=== PATIENT | female | born 1960 | race Asian ===

== ENCOUNTER 2019-02-21 22:14 | Inpatient (IN) | payer BC ==
[~2019-02-21] VITALS: Ht 162.6 cm; Wt 64.6 kg
[2019-02-21 22:30] VITALS: Ht 162.6 cm; Wt 64.6 kg
--- NOTE | 2019-02-21 22:30 | NUR ---
PATIENT SEEN IN BED WITH COMPLAINT OF BLOODY DIARRHEA STOOL , REPORTS HISORY OF DIVERTICULITIS. PATIENT IS [facility] FOR MD EVALUATION. PATIENT ALSO COMPLAINT OF A COUGH SINCE .
[2019-02-21 22:54] LABS: BASOPHIL % 0.1 % (0-2); PLATELET COUNT 289 x10^3mcL (130-400); RED CELL DISTRIBUTION WIDTH 13.6 % (11.5-14.5)
--- NOTE | 2019-02-21 23:00 | NUR ---
PATIENT WAS SEEN BY .
[2019-02-21 23:16] LABS: ALBUMIN 3.5 g/dL (3.4-5.0); BILIRUBIN TOTAL 0.2 mg/dL (0.20-1.00); CALCIUM 8.5 mg/dL (8.5-10.1); CARBON DIOXIDE 31.2 mmol/L (21-32); CREATININE SERUM 1.2 mg/dL (0.6-1.0); TOTAL PROTEIN, SERUM 6.7 g/dL (6.4-8.2)
[2019-02-21 23:21] LABS: POTASSIUM SERUM 2.8 mmol/L (3.5-5.1)
--- NOTE | 2019-02-21 23:30 | NUR ---
PATIENT MEDICATED WITH COUGH MEDICATION, PATIENT DOES HAVE BOUTS OF CONGESTED COUGHING. SALINE LOCK INSERTED. FLUID BOLUS WAS STARTED. TORADOL GIVEN IVO FOR ABDOMINAL PAIN.
--- NOTE | 2019-02-22 | NUR ---
NASAL SWAB WAS DONE FOR INFLUENZA. PATIENT AMBULATED TO THE BATHROOM URINE COLLECED AND SENT TO THE LAB. PATIENT IS ON THE MONITOR , VITAL SIGNS STABLE.
[2019-02-22 01:40] LABS: UA SPECIFIC GRAVITY 1.015 (1.005-1.035); microscopic required? YES; urine erythrocyte TRACE (NEGATIVE)
[2019-02-22] MEDS ORDERED: COZAAR50 M1 PO (01:51)
[2019-02-22] MEDS ORDERED: SYN15 PO (01:51)
--- NOTE | 2019-02-22 02:12 | NUR ---
PT MEDICATED PER MD ORDER. PT VERBALIZED UNDERSTANDING OF ALL MEDICATIONS PRIOR TO ADMINISTRATION.
--- NOTE | 2019-02-22 02:49 | NUR ---
REPORT CALLED TO TREVOR LAMBERT TO ASSUME CARE FOR PT.
--- NOTE | 2019-02-22 02:50 | NUR ---
RECEIVED REPORT FROM ANALIA MURRAY FROM ED. AWAITING FOR PT TO ARRIVE TO UNIT.
[2019-02-22 02:51] LABS: CHOLESTEROL/HDL RATIO 4.5
--- NOTE | 2019-02-22 02:52 | NUR ---
PT IS LAYING IN BED COMFORTABLY, RESP E/U, NAD NOTED.
[2019-02-22 03:18] LABS: FREE T4 1.07 ng/dL (0.76-1.46); T4(THYROXINE) 7.6 ug/dL (4.7-13.3)
[2019-02-22 03:24] LABS: T3 TOTAL 0.74 ng/mL
--- NOTE | 2019-02-22 03:28 | NUR ---
PT MEDICATED PER MD ORDER. PT VERBALIZED UNDERSTANDING OF MEDICATION PRIOR TO ADMINISTRATION.
--- NOTE | 2019-02-22 03:35 | NUR ---
PT ARRIVED TO UNIT VIA WHEELCHAIR ACCOMPANIED BY ED RN. PT IS AAOX4 AND DENIES HEADACHE OR DIZZINESS AT THIS TIME. PT IS MED-SURG AND DENIES CHEST PAIN OR PRESSURE AT THIS TIME. PT PULSES ARE PALPABLE AND CAP REFILL <3 SEC. SCD's AT THE BEDSIDE. PT LUNG SOUNDS ARE CONGESTED. PT BREATHING IS EVEN AND UNLABORED. PT DENIES SOB OR RESPIRATORY DISTRESS AT THIS TIME. PT HAS A NONPRODUCTIVE COUGH. PT ABD SOFT AND NONDISTENDED. PT HAS HYPERACTIVE BOWEL SOUNDS X4. PT C/O FREQUENT BLOODY DIARRHEA. PT C/O ABD PAIN 2/10, BUT IS TOLERABLE. PT REFUSED PAIN MEDICATION AT THIS TIME. PT DENIES N/V AT THIS TIME. PT VOIDS FREELY WITH BRP. PT IS AMBULATORY AND IS OK TO SHOWER. PT SKIN IS WARM, DRY, AND INTACT. PT IV TO LAC IS PATENT AND INTACT. PT REORIENTED TO ROOM AND CALL LIGHT. ALL QUESTIONS AND CONCERNS ADDRESSED. CALL LIGHT WITHIN REACH. BED IN LOWEST POSITION. SIDE RAILS X2 UP. WILL CONTINUE TO MONITOR.
[2019-02-22 04:04] VITALS: BP 105/69
--- NOTE | 2019-02-22 04:50 | NUR ---
PT HAD BM 1X OF BLOODY DIARRHEA WITH SOME BLOOD CLOTS. COLLECTED SAMPLE FOR OB STOOL AND STOOL C&S. WILL CONTINUE TO MONITOR.
[2019-02-22 06:22] LABS: BASOPHIL % 0.2 % (0-2); PLATELET COUNT 210 x10^3mcL (130-400); RED CELL DISTRIBUTION WIDTH 13.5 % (11.5-14.5)
--- NOTE | 2019-02-22 06:32 | NUR ---
PT SLEPT IN INTERVALS AFTER BEING ADMITTED TO THE UNIT AT 0335. PT COMPLIED WITH NURSING CARE THROUGHOUT THE SHIFT. NO ACUTE DISTRESS NOTED DURING THE SHIFT. COMFORT AND SAFETY MEASURES MAINTAINED. ALL NEEDS AND CONCERNS ADDRESSED. WILL ENDORSE TO DAY SHIFT NURSE. WILL CONTINUE TO MONITOR.
[2019-02-22 06:47] LABS: CALCIUM 8.3 mg/dL (8.5-10.1); CARBON DIOXIDE 26.4 mmol/L (21-32); CHLORIDE SERUM 108 mmol/L (98-107); GFR1 > 60 mL/min; GLUCOSE SERUM 134 mg/dL (74-106); MAGNESIUM 1.8 mg/dL (1.8-2.4); PHOSPHOROUS 2.8 mg/dL (2.5-4.9); POTASSIUM SERUM 3.7 mmol/L (3.5-5.1); SODIUM SERUM 140 mmol/L (136-145)
--- NOTE | 2019-02-22 07:13 | NUR ---
ENDORSED CARE TO DAYSI MURRAY. ALL QUESTIONS AND CONCERNS ADDRESSED.
--- NOTE | 2019-02-22 07:30 | NUR ---
OX4. NO SOB AT RM AIR BUT WITH ON/OFF. PRODUCTIVE WITH "LITTLE" WHITISH SPUTUM. DENIES PAIN THAT REQUIRE PAIN MED. ADMITS TO BLOODY STOOLS. DENIES PROBLEM WITH VOIDING. UP DESIRED WITH STABLE GAIT. NSS AT 100 ML/HR INFUSING. LAC SITE PATENT. NSG ASSESSMENT DONE. WILL CONTINUE TO MONITOR STATUS.
[2019-02-22 09:19] VITALS: BP 99/62
[2019-02-22 10:28] VITALS: BP 99/69
--- NOTE | 2019-02-22 10:45 | NUR ---
PT UPDATED WITH NEW ORDERS.
--- NOTE | 2019-02-22 11:00 | NUR ---
PT HAD BM WITH SOLID BLOOD TINGED STOOLS;
--- NOTE | 2019-02-22 12:12 | NUR ---
DR. SORIANO IN THE ROOM TALKING TO PT. VISITORSX2 IN THE ROOM TOO.
[2019-02-22 12:33] VITALS: BP 105/67
--- NOTE | 2019-02-22 13:00 | NUR ---
IVF RATE INCREASED TO 125 ML/HR ORDERED.
[2019-02-22 13:30] LABS: BASOPHIL % 0.2 % (0-2); PLATELET COUNT 197 x10^3mcL (130-400); RED CELL DISTRIBUTION WIDTH 13.3 % (11.5-14.5)
[2019-02-22 17:00] VITALS: BP 103/61
--- NOTE | 2019-02-22 19:00 | NUR ---
PT REPORTED 3 EPISODES OF BM THIS SHIFT. THE LAST ONE BEING "LESSER, WATER IS CLEAR, AND WITH BLOOD CLOTS". STILL WITH ON/OFF COUGH; NO SOB;
--- NOTE | 2019-02-22 19:15 | NUR ---
RECIEVED PT RESTING IN BED WITH FAMILY MEMBER AT BEDSIDE, ASSESSMENT PERFORMED, PT IS A/OX4 NO COMPLAINTS OF RIVERO OR DIZZINESS AT THIS TIME, PT DENIES PAIN OR SOB AT THIS TIME, PT DOES HAVE PRODUCTIVE COUGH WITH SCANT SECRETIONS, ALL PT NEEDS ATTENDED TO AT THIS TIME, SAFETY PRECAUTIONS IN PLACE, WILL CONTINUE TO MONITOR
[2019-02-22 20:50] VITALS: BP 131/71
--- NOTE | 2019-02-22 23:55 | NUR ---
PT RESTING IN BED WATCHING TV WITH NO ACUTE DISTRESS NOTED AT THIS TIME, PT DENIES PAIN OR SOB AT THIS TIME, ALL PT NEEDS ATTENDED TO, SAFETY PRECAUTIONS IN PLACE, WILL CONTINUE TO MONITOR
--- NOTE | 2019-02-23 00:24 | NUR ---
PT COMPLAINING OF COUGH, ADMINISTERED ROBITUSSIN PER PRN ORDER.
[2019-02-23 04:47] VITALS: BP 111/68
--- NOTE | 2019-02-23 04:50 | NUR ---
PT REPORTS COUGHING, ADMINISTERED PO ROBITUSSIN PER PRN ORDER WILL MONITOR
--- NOTE | 2019-02-23 05:06 | NUR ---
PT RESTED COMFORTABLY THROUGH THE NIGHT WITH NO ACUTE DISTRESS. PT HAS 3 EPISODES OF COUGH AND RECIEVED POBITUSSIN PRN 5ML PER ORDER, PT DENIES PAIN OR SOB THROUGH THE NIGHT WITH NO EPISODES OF BLOODY BM, ALL PT NEEDS ATTENDED TO THROUGH THE NIGHT, SAFETY PRECAUTIONS IN PLACE, WILL CONTINUE TO MONITOR AND ENDORSE CARE
[2019-02-23 06:10] LABS: BASOPHIL % 0.5 % (0-2); PLATELET COUNT 205 x10^3mcL (130-400); RED CELL DISTRIBUTION WIDTH 13.6 % (11.5-14.5)
[2019-02-23 06:25] LABS: CALCIUM 8.5 mg/dL (8.5-10.1); CARBON DIOXIDE 26.5 mmol/L (21-32); CHLORIDE SERUM 109 mmol/L (98-107); CREATININE SERUM 0.7 mg/dL (0.6-1.0); GFR1 > 60 mL/min; GLUCOSE SERUM 88 mg/dL (74-106); POTASSIUM SERUM 3.5 mmol/L (3.5-5.1); SODIUM SERUM 141 mmol/L (136-145)
--- NOTE | 2019-02-23 07:00 | NUR ---
RECEIVED REPORT FROM DYE WORKER PATIENT LYING IN BED DENIES ANY PAIN AT THIS TIME. IV ON LAC PATENT AND INTACT NO REDNESS OR EDEMA NOTED. PATIENT DENIES ANY BLEEDIND ABD SOFT AND FLAT ACTIVE SOUNDS IN ALL 4 QUADS. ALL QUESTIONS AND CONCERNS ADDRESSED AT THIS TIME. BED IN LOWEST POSITION CALL LIGHT WITHIN REACH. WILL CONTINUE TO MONITOR.
[2019-02-23 08:51] VITALS: BP 103/69
--- NOTE | 2019-02-23 09:14 | NUR ---
ADMINISTERED SCHEDULAED MED PER MAR PATIENT TOLERATED WELL. PATIENT DENIES ANY PAIN AT THIS TIME. PATIENT STILL COUGHING ADMINISTERED ROBITUSSIN NO ADVERSE REACTIONS NOTED. IV INFUSING ANTIBIOTICS NO EDEMA OR REDNESS NOTED. ALL NEEDS ATTENDED TO. BED IN LOWEST POSITION CALL LIGHT WITHIN REACH. WILL OCNTINUE TO MONITOR.
[2019-02-23] MEDS ORDERED: LEVOFLOXACIN500 M1 PO (09:26)
[2019-02-23] MEDS ORDERED: GOOD SENSE OMEP20 MG PO (09:26)
[2019-02-23] MEDS ORDERED: FLAGYL500 MG PO (09:26)
[2019-02-23] MEDS ORDERED: ROBL PO (09:28)
[2019-02-23] MEDS ORDERED: SLOFE PO (09:54)
[2019-02-23 10:50] VITALS: BP 103/69
--- NOTE | 2019-02-23 11:19 | NUR ---
DISCHARGE INSTRUCTINS GIVEN PATIENT VERBALIZED UNDERSTANDING. IV D/C'D DRESSING APPLIED CATHETER INTACT PATIENT TOLERATED WELL. ALL [id number] BELONGINGS PACKED UP AND TAKEN WITH PATIENT. ALL QUESTIONS AND CONCERNS ADDRESSED. PATIENT DENIES ANY PAIN AND STABLE FOR DISCHARGE.
== END 2019-02-23 11:35 | disposition home or self-care (01) | DRG 378 ==
LOC: ED 22:14 → MU 02-22 01:38
PROVIDERS: Emergency Medicine; ADMIT Internal Medicine
DX: K57.33 Diverticulitis of large intestine without perforation or abscess with bleeding (principal); D62 Acute posthemorrhagic anemia; N39.0 Urinary tract infection, site not specified; E03.9 Hypothyroidism, unspecified; E78.00 Pure hypercholesterolemia, unspecified; E87.6 Hypokalemia; E78.5 Hyperlipidemia, unspecified; E86.0 Dehydration; Z79.899 Other long term (current) drug therapy
CPT/HCPCS: 84439; 87046; 87046-59; 87804; 94150; G0378; J1885; J1956; J3490; J7030; J7040; J7060; Q0092